=== PATIENT | male | born 1960 | race Caucasian/White ===

== ENCOUNTER 2021-05-10 08:00 | Outpatient (CLI) | payer OTHER ==
[~2021-05-10 08:00] MED LIST: KEPPRA XR500 MG; LAMICTAL200 M1; PROTONIX40 MG; ZANTAC300 MG
== END 2021-05-10 08:30 | disposition home or self-care (01) ==
LOC: PPH VACUNA 08:00
PROVIDERS: ATTEND Emergency Medicine Pediatric Emergency Medicine
DX: Z23 Encounter for immunization (principal)